=== PATIENT | male | born 1950 | race Asian ===

== ENCOUNTER 2017-04-17 20:22 | Emergency (ER) | payer MEDICARE ==
[2017-04-17 20:36] VITALS: BP 132/77
--- NOTE | 2017-04-17 22:41 | ED Physician Documentation ---
PD HPI UPPER EXT INJURY - Stated complaint Stated Complaint: RT HAND INJURY - Chief complaint Chief Complaint: Ext Problem - History obtained from History obtained from: Patient - History of Present Illness Location: Right, Wrist, Hand Type of injury: Other (torque injury with a drill) Where injury occurred: Home Timing - onset: Yesterday Timing - duration: Days (1) Timing - details: Abrupt onset, Waxing and waning Improved by: Rest, Immobilization Worsened by: Moving, Palpating Associated symptoms: Swelling. No: Weakness, Numbness, Tingling Contributing factors: No: Anticoagulated Similar symptoms before: Has not had sx before Recently seen: Not recently seen - Additonal information Additional information: 66-year-old male was using a 1/2 inch drill with a Magalys bit on it and the drill bit caught and the drill torqued and twisted the patient's wrist. He had severe pain in the wrist he was able to finish completing his work for the day and today he tried to use a chainsaw with a splint in place he was unable to complete this task and when he removed the splint today he continued to have pain. He had pain all night last night as well. Review of Systems Constitutional: denies: Fever Respiratory: denies: Cough GI: denies: Vomiting Skin: denies: Rash Musculoskeletal: reports: Extremity pain, Joint pain. denies: Neck pain, Back pain Neurologic: denies: Generalized weakness, Focal weakness, Numbness PD PAST MEDICAL HISTORY - Present Medications Home Medications: Ambulatory Orders Medication Instructions Recorded Confirmed No Known Home Medications [No 04/17/17 04/17/17 Known Home Medications] - Allergies Allergies/Adverse Reactions: Allergies Allergy/AdvReac Type Severity Reaction Status Date / Time No Known Drug Allergies Allergy Verified 04/17/17 20:35 PD ED PE NORMAL - Vitals Vital signs reviewed: Yes (Hypertensive) - General General: Alert and oriented X 3, No acute distress, Well developed/nourished - HEENT HEENT: Atraumatic - Respiratory Respiratory: No respiratory distress - Derm Derm: Normal color, Warm and dry, No rash - Extremities Extremities: Other (There is marked tenderness to the right navicula. There is some pain with flexion extension of the wrist and supination and pronation of the forearm the majority the pain extends from the navicula into the thumb. He also has pain on the distal ulna and ulnar surface of the hand. Distal neurovascular components are intact.) - Neuro Neuro: Alert and oriented X 3, No motor deficit, No sensory deficit, Normal speech - Psych Psych: Normal mood, Normal affect Results - Vitals Vitals: Vital Signs - 24 hr 04/17/17 20:33 Temperature 37.1 C Heart Rate 70 Respiratory 18 Rate Blood Pressure 132/77 H O2 Saturation 99 Oxygen O2 Source Room air - Rads (name of study) Right hand Radiology: Prelim report reviewed (Impression: No evidence of fracture or dislocation.), EMP read indepedently, See rad report Right wrist Radiology: Prelim report reviewed (Impression: No fracture or dislocation. Triscaphe joint degenerative changes.), EMP read indepedently, See rad report Procedures - Splint (location) right wrist Splint applied by: Tech Type of splint: Fiberglass, Thumb spica Other: Patient tolerated well, No complications, Neurovascular intact, Good alignment PD MEDICAL DECISION MAKING - ED course Complexity details: reviewed results, re-evaluated patient, considered differential, d/w patient ED course: 66-year-old male with a torque injury to the right wrist has pain mostly over the scaphoid on the right side he is placed into a thumb spica splint and I have encouraged him to seek follow-up with the orthopedic surgeons in the next week for a repeat x-ray at the 7-10 day qi. Departure - Departure Disposition: 01 Home, Self Care Clinical Impression: Right wrist sprain Qualifiers: Encounter type: initial encounter Qualified Code(s): S63.501A - Unspecified sprain of right wrist, initial encounter Condition: Stable Instructions: ED Sprain Wrist Follow-Up: [facility] [Provider Group] Comments: Wear the thumb spica splint for the next 2 weeks. Follow-up with the orthopedic doctors across the street here for reevaluation in 1-2 weeks.
--- NOTE | 2017-04-17 23:21 | XRAY Preliminary Report ---
Exam: XR Wrist 4 View RT IMPRESSION: No fracture or dislocation. Triscaphe joint degenerative changes. [facility] SITE ID: [id number]
--- NOTE | 2017-04-17 23:23 | XRAY Report ---
EXAM: RIGHT WRIST RADIOGRAPHY EXAM DATE: 04/17/2017 11:10 PM. CLINICAL HISTORY: Tour que injury navicular pain . COMPARISON: None. TECHNIQUE: 3 views. FINDINGS: Bones: Normal. No fractures or bone lesions. 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 No dislocations. Soft Tissues: Normal. No soft tissue swelling. IMPRESSION: No fracture or dislocation. Triscaphe joint degenerative changes. [facility] Referring Provider Line: [phone] SITE ID: [id number]
--- NOTE | 2017-04-17 23:23 | XRAY Preliminary Report ---
Exam: XR Hand 3 View RT IMPRESSION: No evidence of fracture or dislocation. [facility] SITE ID: [id number]
--- NOTE | 2017-04-17 23:25 | XRAY Report ---
EXAM: RIGHT HAND RADIOGRAPHY EXAM DATE: 04/17/2017 11:10 PM. CLINICAL HISTORY: Pain over dorsal thumb with torque injury. COMPARISON: None. TECHNIQUE: 3 views. FINDINGS: Bones: Normal. No fractures or bone lesions. Joints: Normal. No subluxations. Degenerative changes at the triscaphe joint. Soft Tissues: Normal. No soft tissue swelling. IMPRESSION: No evidence of fracture or dislocation. [facility] Referring Provider Line: [phone] SITE ID: [id number]
[2017-04-17] MEDS ORDERED: HYDROcod/ACET 5/325 Prepack 6 PO ONE ×2 (23:49→23:55)
== END 2017-04-18 00:01 | disposition home or self-care (01) ==
LOC: ED 20:22
DX: S63.501A Unspecified sprain of right wrist, initial encounter (principal); X50.0XXA Overexertion from strenuous movement or load, initial encounter; Y92.018 Other place in single-family (private) house as the place of occurrence of the external cause
CPT/HCPCS: 29125; 99283

== ENCOUNTER 2019-10-08 07:29 | Day surgery (SDC) | payer MEDICARE, OTHER ==
[2019-10-08] MEDS ORDERED: LIDOCAINE-MPF 2% 5 ML VIAL IM ONE (07:30)
[2019-10-08] MEDS ORDERED: DEXAMETHASONE 4 MG/ML VIAL IVP ONE (07:30)
[2019-10-08] MEDS ORDERED: ONDANSETRON 4 MG/2 ML VIAL IVP ONE (07:30)
[2019-10-08] MEDS ORDERED: PROPOFOL 200 MG/20 ML VIAL IVP ONE (07:30)
[2019-10-08] MEDS ORDERED: fentaNYL 100 MCG/2 ML VIAL IVP ONE (07:30)
[2019-10-08] MEDS ORDERED: LACTATED RINGERS 1,000 ML IV ONE (07:42)
--- NOTE | 2019-10-08 07:55 | ANESTHESIA ---
Pre-Anesthesia VS, & Labs - Diagnosis R incarcerated inguinal hernia - Procedure R inguinal hernia repair Vital Signs: Temp Pulse Resp BP Pulse Ox 36.3 C L 71 18 143/97 H 99 10/08/19 07:43 10/08/19 07:43 10/08/19 07:43 10/08/19 07:43 10/08/19 07:43 Height 6 ft Weight (kg) 74 kg Body Mass Index 21.7 - NPO >8 hours Home Medications and Allergies Home Medications: Ambulatory Orders Acetaminophen [Tylenol] 650 mg PO Q6H PRN 10/04/19 Acetaminophen [Tylenol] 650 mg PO Q6H PRN 10/04/19 Allergies/Adverse Reactions: Allergies Allergy/AdvReac Type Severity Reaction Status Date / Time No Known Drug Allergies Allergy Verified 04/17/17 20:35 Anes History & Medical History - Anesthetic History Anesthesia Complications: reports: No previous complications Family history of Anesthesia Complications: Denies Family history of Malignant Hyperthermia: Denies - Medical History Cardiovascular: reports: None Pulmonary: reports: None Gastrointestinal: reports: None Urinary: reports: Frequency Musculoskeletal: reports: Osteoarthritis Endocrine/Autoimmune: reports: None Skin: reports: None Smoking Status: Never smoker - Surgical History Orthopedic: Arthroscopic surgery, Other Results - EKG Results EKG Comparison: Reviewed EKG (SR w/LVH) Exam General: Alert, Oriented x3, Cooperative Dental: WNL Mouth Opening: Greater than 4 Fingerbreadths Neck Mobility: Normal Mallampati classification: I Thyromental Distance: greater than 6 cm Respiratory: Lungs clear, Normal breath sounds, No respiratory distress Cardiovascular: Regular rate Neurological: Normal speech Mental/Cognitive Status: Alert/Oriented X3, Normal for patient Cognitive Status: Within normal limits Plan Anesthesia Type: General Consent for Procedure(s) Verified and Reviewed: Yes Code Status: Attempt Resuscitation ASA classification: 2-Mild systemic disease Is this case an emergency?: No
[2019-10-08] MEDS ORDERED: ceFAZolin 1 GM VIAL ONE (08:55)
[2019-10-08] MEDS ORDERED: BUPIVACAINE 0.25% PF 30 ML VIAL ONE (08:57)
[2019-10-08] MEDS ORDERED: LIDOCAINE 1%-EPI 1:100000 20 ML MDV ONE (08:57)
[2019-10-08] MEDS ORDERED: CEFAZOLIN SODIUM IN 0.9 % NACL 2 GM/100 ML BAG IV ONE (09:31)
[2019-10-08] MEDS ORDERED: BACITRACIN ZINC OINT 1 PACKET TOP ONE (09:59)
[2019-10-08] MEDS ORDERED: ceFAZolin 1 GM VIAL IR ONE (10:08)
[2019-10-08] MEDS ORDERED: LIDOCAINE 1%-EPI 1:100000 30 ML MDV SUBQ ONE (10:08)
[2019-10-08] MEDS ORDERED: BUPIVACAINE 0.25% PF 30 ML VIAL SUBQ ONE (10:08)
--- NOTE | 2019-10-08 10:37 | OPERATIVE REPORT ---
Operative Report - General Procedure Date: 10/08/19 Planned Procedure: Right Inguinal Hernia Repair Pre-Op Diagnosis: Large right inguinal hernia Procedure Performed: Right inguinal hernia repair Post Op Diagnosis: Large right inguinal hernia - Procedure Note Primary Surgeon: Kymberly Anesthesia Provider: DAVY Patel Anesthesia Technique: General LMA, Local, Regional block Pathology: None Estimated Blood Loss (mL): 10 Findings: Very large indirect inguinal hernia Complications: None apparent - Other Other Information/Narrative: After obtaining informed consent, the patient is brought to the operating room and placed in the supine position on the operating table. Following successful induction of general endotracheal anesthesia, appropriate padding of all bony prominences, and placement of appropriate monitors, the abdomen was prepped and draped in the standard surgical fashion. A timeout was held per scope protocol. All elements of the surgical safety checklist were followed before, during, and after the procedure. We began the procedure by infiltrating a mixture of local anesthetics medial to the anterior superior iliac spine on the right. This was done to create an ileal inguinal nerve block. We then selected a site for an incision in the right lower quadrant just superior and lateral to the right pubic tubercle. This area was anesthetized with additional local anesthetic and an incision was created here.The incision was carried down through the skin and subcutaneous tissue to reveal the fascia of the external oblique aponeurosis. Retractor was placed and the aponeurosis was opened in direction of its fibers. The ilioinguinal nerve was immediately identified. We continued by identifying the spermatic cord and gently encircling it with a [place] drain. The hernia sac was carefully dissected free from the cord structures and was noted to be in the inferior medial position. The sac was in the indirect position. We carefully dissected the spermatic cord from the sac. The hernia sac was then placed back into the abdominal cavity. We elected to repair the hernia with a large Prolene hernia system mesh implant. This was dipped in Ancef containing solution and then deployed into the defect. The posterior leaflet was straightened and flattened in the preperitoneal space. The anterior leaflet was then nicked medially to provide a place for the spermatic cord and then closed with a Vicryl suture. The more inferior aspect was then sewn to Jermaine's ligament medially. Laterally it was tucked under the external beak aponeurosis. The wound was checked for hemostasis and irrigated with warm saline solution. It was aspirated free of all fluid and particulate matter. The extra oblique aponeurosis was then closed with a running locking Vicryl suture Emi's fascia was closed with Vicryl suture and Monocryl stitches were placed in the skin. All sponge, needle, and instrument counts were correct at the conclusion of the case. The patient was allowed awaken from anesthesia without difficulty and taken to the postanesthesia care unit in good condition.
[2019-10-08] MEDS ORDERED: IBUPROFEN 600 MG TABLET PO PRN (10:38)
[2019-10-08] MEDS ORDERED: ONDANSETRON 4 MG/2 ML VIAL IVP PRN (10:38)
[2019-10-08] MEDS ORDERED: oxyCODONE 5 MG TABLET PO PRN (10:38)
[2019-10-08] MEDS ORDERED: ACETAMINOPHEN 325 MG TABLET PO PRN (10:38)
[2019-10-08] MEDS ORDERED: oxyCODONE 5 MG TABLET ONE (11:38)
[2019-10-08] MEDS ORDERED: ACETAMINOPHEN 325 MG TABLET PO ONE (11:39)
[2019-10-08 12:39] VITALS: BP 128/86
== END 2019-10-08 07:30 | disposition home or self-care (01) ==
LOC: SDS 07:29
PROVIDERS: ATTEND Surgery
PROC: 0YU50JZ Supplement Right Inguinal Region with Synthetic Substitute, Open Approach (ICD-10-PCS; principal; 2019-10-08 08:45)
DX: K40.90 Unilateral inguinal hernia, without obstruction or gangrene, not specified as recurrent (principal); R35.0 Frequency of micturition
CPT/HCPCS: 49505; A9270; C1781; J0690; J7120

== ENCOUNTER 2023-07-16 13:00 | Outpatient (CLI) | payer MEDICARE ==
[2023-07-16 19:33] LABS: CALCIUM 9.7 mg/dL (8.5-10.3); CREATININE 0.6 mg/dL (0.6-1.3); POTASSIUM 4.1 mmol/L (3.5-4.5); URIC ACID 4.5 mg/dL (4.4-7.6)
[2023-07-16 20:26] LABS: RHEUMATOID FACTOR NEGATIVE (Negative)
== END 2023-07-16 13:15 | disposition home or self-care (01) ==
LOC: LAB.N 13:00
PROVIDERS: ATTEND Family Medicine
DX: M13.80 Other specified arthritis, unspecified site (principal)
CPT/HCPCS: 36415; 80048; 84550; 85651; 86038; 86430

== ENCOUNTER 2023-07-16 14:58 | Outpatient (CLI) | payer MEDICARE ==
--- NOTE | 2023-07-16 15:34 | XRAY Report ---
PROCEDURE: Wrist 3 View BILAT INDICATIONS: INFLAMMATORY ARTHRITIS BILAT TECHNIQUE: 3 views of each wrist were acquired. COMPARISON: None. FINDINGS: Bones: No fracture or dislocation. No suspicious osseous lesions. There is joint space narrowing and subchondral sclerosis with osteophyte formation most prominent at the first carpometacarpal/triscaph e joint. Joint space narrowing of the radiocarpal joints. 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 Soft tissues: No mass IMPRESSION: Osteoarthritic changes of the bilateral wrist and base of thumbs. Left chondral calcinosis. Reviewed by: Gamal Maria MD on 07/16/2023 2:32 PM [place] Approved by: Gamal Maria MD on 07/16/2023 2:32 PM [facility] Station ID: [id number]
== END 2023-07-16 14:59 | disposition home or self-care (01) ==
LOC: DI 14:58
PROVIDERS: ATTEND Family Medicine
DX: M19.032 Primary osteoarthritis, left wrist (principal); M19.031 Primary osteoarthritis, right wrist; M11.232 Other chondrocalcinosis, left wrist
CPT/HCPCS: 36415; 80048; 84550; 85651; 86038; 86430